=== PATIENT | male | born 2000 | race Two or more races ===

== ENCOUNTER 2023-12-24 04:24 | Emergency (ER) | payer OTHER ==
[~2023-12-24] VITALS: Ht 188 cm; Wt 70.1 kg
[~2023-12-24 04:24] MED LIST: ACET1TAB55 PO; IBUP-1022 PO; METH-1164 PO
[2023-12-24 04:52] LABS: APPEARANCE, URINE CLEAR (CLEAR); BACTERIA, URINE AUTO NEGATIVE (NEGATIVE); BILIRUBIN, URINE AUTO NEGATIVE (NEGATIVE); BLOOD, URINE BLOOD NEGATIVE (NEGATIVE); COLOR, URINE STRAW (YELLOW); GLUCOSE, URINE (UA) AUTO NEGATIVE (NEGATIVE); KETONE, URINE AUTO NEGATIVE (NEGATIVE); LEUKOCYTE ESTERASE, URINE AUTO 1+ (NEGATIVE); NITRITE, URINE AUTO NEGATIVE (NEGATIVE); PROTEIN, URINE AUTO NEGATIVE (NEGATIVE); RBC, URINE AUTO 1 /HPF (0-3); SPECIFIC GRAVITY URINE AUTO 1.008 (1.002-1.035); SQUAMOUS EPITHELIAL CELL UR AU 0 /HPF (0-6); UROBILINOGEN, URINE AUTO 0.2 mg/dL (0.0-2.0); WBC, URINE AUTO 16 /HPF (0-3)
[2023-12-24] MEDS ORDERED: LEVO1TAB39 PO (06:48)
[2023-12-24 06:51] LABS: Trichomonas vaginalis (AMP) NOT DETECTED (NEGATIVE)
[2023-12-24 07:15] LABS: GC DNA AMPLIFICATION NEGATIVE (NEGATIVE)
[2023-12-24] MEDS: LevoFLOXacin 750 MG TABLET PO ONE (07:16)
[2023-12-24 07:50] VITALS: BP 124/74; TEMP 98.8; O2SAT 98
== END 2023-12-24 07:52 | disposition home or self-care (01) ==
LOC: M ED 04:24
DX: N45.1 Epididymitis (principal); Z79.1 Long term (current) use of non-steroidal anti-inflammatories (NSAID); Z79.899 Other long term (current) drug therapy